=== PATIENT | male | born 1975 | race Caucasian/White ===

== ENCOUNTER 2025-01-07 17:33 | Emergency (ER) | payer OTHER, SELFPAY ==
[2025-01-07 17:49] VITALS: BP 171/102; PULSE 107; TEMP 37.1; O2SAT 99; BMI 37.0
--- OUTSIDE RECORDS SUMMARY | 2025-01-07 18:30 | XMS_ITS | Encounter Summary ---
Author Organization [facility] Address [address], [address] [place] [address] Care Team Providers Care Lithograph Printer Name Role Phone Lisseth Olivares DO Primary Care Provider Reason for Visit * Reason Comments Medication Refill Encounter Details Date Type Department Care Team (Late st Contact Info) Description 05/23/2020 [facility] [address] [place] [address] Lisseth Olivares DO [address] [place] [address] Medication Refill Social History Tobacco Use Types Packs/Day Years Used Date Smoking Tobacco: Every Day Cigarettes 2 23 Started: 11/01/1988; Last attempted to quit: 11/02/2011 Smokeless Tobacco: Never Alcohol Use Standard Drinks/Week Comments No 0 (1 standard drink = 0.6 oz pur e alcohol) PHQ-2 Answer Date Recorded PHQ-2 Score 0 07/29/2018 Sex and Gender Information Value Date Recorded Sex Assigned at Not on file Legal Sex Male 2:46 PM EST Gender Identity Not on file Sexual Orientation Not on file documented as of this encounter Plan of Treatment Upcoming Encounters Date Type Department Care Team (Late st Contact Info) Description 01/13/2025 10:20 AM EDT Office Visit [facility] [address] [place] [phone] Lisseth Olivares DO [address] [facility] [place] [address] Check up - DM documented as of this encounter Visit Diagnoses Not on filedocumented in this encounter Care Teams Lithograph Printer Relationship Specialty Start Date End Date Lisseth Olivares DO [address] [place] [phone] PCP - General Family Medicine 09/08/17 documented as of this encounter
--- OUTSIDE RECORDS SUMMARY | 2025-01-07 18:30 | XMS_ITS | Patient Health Record ---
Author Organization [facility] Address [address] [place] [address] Care Team Providers Care Pin Puller Name Role Phone Lisseth Olivares Primary Care Provider Curry aury Nam Jean Pierre Unavailable [phone] Allergies No Known Allergies Reason For Referral No Information Social History Tobacco Use: Social History Observation Description Date Details (start date - stop date) Current Smoker NA - NA Smoking History Question Answer Notes Smoking Status Current Smoker Problems Problem Type SNOMED Code ICD Code Onset Dates Problem Status W/U Status Risk Notes Problem Ganglion of right wrist (M67.431) Active confirmed Problem Arthralgia of right wrist (M25.531) Active confirmed Plan Of Treatment No Information Insurance Providers Payer Name Payer Address Payer Phone Subscriber Number Group Number Insured Name Patient Relationship to Insured Coverage Start Date Coverage End Date [facility] YANELY [address] [place] [address] [id number] DEDE TOMAS Self - patient is the insured Medical (General) History Medical History History ICD Code Asthma/COPD Yes Heart Attack: Yes Heart problems: Yes Diabetes: Yes GI Problems: Yes High Blood Pressure: Yes Sleep apnea: Yes Surgical History Surgery Date(Month/Year)
--- OUTSIDE RECORDS SUMMARY | 2025-01-07 18:30 | XMS_ITS | Clinical Summary ---
Author Organization [facility] Address [address] [place] [address] Care Team Providers Care Aircraft General Repair Mechanic Name Role Phone Unavailable Primary Care Provider Unavailabl e Social History Tobacco Use Types Packs/Day Years Used Date Smoking Tobacco: Never Assessed Sex and Gender Information Value Date Recorded Sex Assigned at Not on file Legal Sex Male 8:22 PM EDT Gender Identity Not on file Sexual Orientation Not on file Last Filed Vital Signs Vital Sign Reading Time Taken Comments Blood Pressure 136/90 10/09/2017 12:00 PM EDT Pulse - - Temperature - - Respiratory Rate - - Oxygen Saturation - - Inhaled Oxygen Concentration - - Weight 129 kg (285 lb) 10/09/2017 12:00 PM EDT Height 182.9 cm (6') 10/09/2017 12:00 PM EDT Body Mass Index 38.65 10/09/2017 12:00 PM EDT Plan of Treatment Not on file
--- OUTSIDE RECORDS SUMMARY | 2025-01-07 18:30 | XMS_ITS | Clinical Summary ---
Author Organization [facility] Address [address], [address] [place] [address] Care Team Providers Care Compliance Director Name Role Phone Lisseth Olivares Primary Care Provider Allergies Active Allergy Reactions Criticality Noted Date Comments Bee Venom Anaphylaxis High 01/19/2014 Medications Lancets MISCIndications: Other diabetic neurological complication associated with type 2 diabetes mellitus (HCC) Test blood sugar twice daily and as needed 100 each 3 07/19/19 16 Active Additional Information Patient not taking.Reported on 09/14/2024 acetaminophen (TYLENOL) 325 MG tablet Take 325 mg by mouth Active blood glucose monitor strips Test BID 100 strip 5 06/28/19 21 Active Additional Information Patient not taking.Reported on 09/14/2024 Continuous Blood Gluc Coach Operator (FREESTYLE NICCI READER) DEVIIndications: Type 2 diabetes mellitus with diabetic polyneuropathy, with long-term current use of insulin ([facility]) Check sugar 4 times daily 1 each 08/04/19 22 Active Additional Information Patient not taking.Reported on 09/14/2024 Continuous Blood Gluc Sensor (FREESTYLE NICCI 14 DAY SENSOR) MISCIndications: Type 2 diabetes mellitus with diabetic polyneuropathy, with long-term current use of insulin ([facility]) Use to monitor glucose continuously. Change every 2 wks. 6 each 3 08/17/19 Active Additional Information Patient not taking.Reported on 09/14/2024 gabapentin (NEURONTIN) 600 MG tabletIndication s:Type 2 diabetes mellitus with diabetic polyneuropathy, with long-term current use of insulin (HCC) Take 1 tablet by mouth 2 times daily for 180 days. 60 tablet 5 01/29/20 Active Additional Information Patient not taking.Reported on 09/14/2024 insulin aspart (NOVOLOG FLEXPEN) 100 UNIT/ML injection pen Inject 30 Units into the skin 3 times daily (before meals) 9 Adjustable Dose Pre-filled Pen Syringe 5 01/29/20 Active Additional Information Patient not taking.Reported on 09/14/2024 metFORMIN (GLUCOPHAGE-XR) 500 MG extended release tablet Take 2 tablets by mouth 2 times daily (with meals) 120 tablet 5 01/29/20 Active Additional Information Patient not taking.Reported on 09/14/2024 insulin glargine (LANTUS SOLOSTAR) 100 UNIT/ML injection pen Inject 40 Units into the skin daily 45 mL 1 07/22/19 25 Active lisinopril (PRINIVIL;ZESTRI L) 10 MG tablet Take 1 tablet by mouth daily 90 tablet 1 08/28/19 25 Active Insulin Pen Needle (Janalakshmi UNIFINE PENTIPS PLUS) 32G X 4 MM MISCIndications: Type 2 diabetes mellitus with diabetic polyneuropathy, with long-term current use of insulin ([facility]) Use daily to inject lantus 100 each 3 08/28/19 25 Active blood glucose monitor stripsIndication s:Type 2 diabetes mellitus with diabetic polyneuropathy, with long-term current use of insulin ([facility]) Test 3 times a day 300 strip 1 08/28/19 25 Active glucose monitoring kitIndications:T ype 2 diabetes mellitus with diabetic polyneuropathy, with long-term current use of insulin ([facility]) 1 kit by Does not apply route 3 times daily 1 kit 08/28/19 25 Active Additional Information Patient not taking.Reported on 09/14/2024 Lancets MISCIndications: Type 2 diabetes mellitus with diabetic polyneuropathy, with long-term current use of insulin ([facility]) 1 each by Does not apply route 3 times daily 30 each 3 05/02/20 25 Active buPROPion (WELLBUTRIN SR) 150 MG extended release tablet Take 1 tablet by mouth 2 times daily 60 tablet 2 12/21/19 25 Active glipiZIDE (GLUCOTROL XL) 5 MG extended release tablet Take 1 tablet by mouth daily 30 tablet 2 12/21/19 25 Active glipiZIDE (GLUCOTROL XL) 5 MG extended release tablet Take 1 tablet by mouth daily 30 tablet 2 09/15/19 25 025 Discontin ued(REORD ER) buPROPion (WELLBUTRIN SR) 150 MG extended release tablet Take 1 tablet by mouth 2 times daily 60 tablet 2 11/16/19 25 025 Discontin ued(REORD ER) Active Problems Problem Noted Date Diagnosed Date Type 2 diabetes mellitus wit h diabetic polyneuropathy, with long-term current use of insulin 07/25/2024 Thoracic back pain 09/01/2015 Depression with anxiety 05/05/2012 Obesity 11/05/2011 Type 2 diabetes mellitus wit h complication, with long-term current use of insulin Essential hypertension Dyslipidemia Tobacco abuse Resolved Problems Problem Noted Date Diagnosed Date Resolved Date Cutaneous abscess of back excluding buttocks 0 07/27/2021 Asthma 11/05/2011 06/29/2020 Chest pain at rest 9 Encounters Date Type Department Care Team Description 12/20/2024 Refill [facility] [address] [place] [address] Lisseth Olivares, DO Medication Refill 11/15/2024 Refill [facility] [address] [place] [address] Lisseth Olivares, DO Medication Refill from Last 3 Months Immunizations Immunization Administration Dates Next Due COVID-19, PFIZER PURPLE top, DILUTE for use, (age 12 y+), 30mcg/0.3mL 02/14/2021,01/17/2021 Influenza 01/26/2013,03/24/2012 Family History Medical History Relation Name Comments Cancer Father Heart Attack Father Heart Disease Father Relation Name Status Comments Father Maternal Grandfather Maternal Grandmother Mother Alive Paternal Grandfather Paternal Grandmother Social History Tobacco Use Types Packs/Day Years Used Date Smoking Tobacco: Every Day Cigarettes 1 23 Smokeless Tobacco: Never Tobacco Cessation:Ready to Q uit: No; Counseling Given: Yes Alcohol Use Standard Drinks/Week Comments No 0 (1 standard drink = 0.6 oz pur e alcohol) [facility] Utilities Answer Date Recorded In the past 12 months has th e electric, gas, oil, or water company threatened to shut off services in your home? No 07/21/2024 Overall Financial Resource Strain (CARDIA) Answe r Date Recorded How hard is it for you to pa y for the very basics like food, housing, medical care, and heating? Very hard 06/18/2022 PHQ-2 Answer Date Recorded PHQ-9 Total Score 8 07/21/2024 Hunger Vital Sign Answer Date Recorded Within the past 12 months, y ou worried that your food would run out before you got the money to buy more. Never true 07/22/19 25 Within the past 12 months, t he food you bought just didn't last and you didn't have money to get more. Never true 07/21/2024 PRAPARE - Transportation Answer Date Re corded In the past 12 months, has l ack of transportation kept you from medical appointments or from getting medications? No 06/27 In the past 12 months, has l ack of transportation kept you from meetings, work, or from getting things needed for daily living? No 07/21/2024 Housing Stability Vital Sign Answer Dc e Recorded Unable to Pay for Housing in the Last Year Not o n file 06/18/2022 Number of Places Lived in the Last Year Not on f ile 06/18/2022 In the last 12 months, was t here a time when you did not have a steady place to sleep or slept in a mcfp (including now)? Yes 06/18/2022 Housing Stability Vital Sign Answer Dc e Recorded In the last 12 months, was t here a time when you were not able to pay the mortgage or rent on time? No 07/21/2024 In the past 12 months, how m any times have you moved where you were living? 0 07/21/2024 At any time in the past 12 m [facility], were you homeless or living in a mcfp (including now)? No 07/21/2024 Food Insecurity Answer Date Recorded Within the past 12 months, y ou worried that your food would run out before you got the money to buy more. 1 07/21/2024 Within the past 12 months, t he food you bought just didn't last and you didn't have money to get more. 1 07/21/2024 Sex and Gender Information Value Date Recorded Sex Assigned at Not on file Legal Sex Male 2:46 PM EST Gender Identity Not on file Sexual Orientation Not on file Last Filed Vital Signs Vital Sign Reading Time Taken Comments Blood Pressure 120/88 09/14/2024 1:03 PM EDT Pulse 101 09/14/2024 1:03 PM EDT Temperature 36.9 C (98.4 F) 03/01/2022 11:46 PM EDT Respiratory Rate 16 03/01/2022 11:46 PM EDT Oxygen Saturation 98% 09/14/2024 1:03 PM EDT Inhaled Oxygen Concentration - - Weight 104.6 kg (230 lb 8 oz) 09/14/2024 1:03 PM EDT Height 182.9 cm (6' 0.01 ) 09/14/2024 1:03 PM ED T Body Mass Index 31.25 09/14/2024 1:03 PM EDT Plan of Treatment Upcoming Encounters Date Type Department Care Team (Late st Contact Info) Description 01/13/2025 10:20 AM EDT Office Visit [facility] [address] [place] [address] Lisseth Oliavres DO [address] [place] [address] Check up - DM Health Maintenance Due Date Last Done Comments DTaP/Tdap/Td vaccine (1 - Tdap) 1995 Hepatitis B vaccine (1 of 3 - 19+ 3-dose series) 1995 Pneumococcal 0-49 years Vaccine (1 of 2 - PCV) 1995 Diabetic retinal exam 10/15/2017 10/15/2016 , 12/14/2013, 05/25/2012 Colonoscopy 2021 Colorectal Cancer Screen 2021 FIT/FOBT: Average risk 2021 Fecal-DNA (Cologuard): Average risk 2021 Sigmoidoscopy/CT colonography 2021 Diabetic foot exam 07/27/2022 07/27/2021, 0 09/10/2018, 11/01/2014, Additional history exists Flu vaccine (#1) 11/26/2024 01/26/2013, 03/24/2012 A1C test (Diabetic or Prediabetic) 11/27/2024 08/27/2024, 01/28/2023, 06/18/2022, Additional history exists COVID-19 Vaccine ( season) 2024 02/14/2021, 01/17/2021 Depression Monitoring 07/21/2025 07/21/2024, 025 Diabetic Alb to Cr ratio (uACR) test 08/27/2025 08/27/2024, 06/16/2020, 09/10/2018, Additional history exists GFR test (Diabetes, CKD 3-4, OR last GFR 15-59) 08/27/2025 08/27/2024, 01/28/2023, 07/03/2022, Additional history exists Lipids 08/27/2025 08/27/2024, 1006/2022, 08/21/2021, Additional history exists HIV screen Addressed 10/18/2015 (Declined) Overri dden with the intention of not completing the topic Hepatitis C screen Completed 06/16/2020 Hepatitis A vaccine Aged Out No longe r eligible based on patient's age to complete this topic Hib vaccine Aged Out No longer eligi ble based on patient's age to complete this topic Meningococcal (ACWY) vaccine Aged Out No longer eligible based on patient's age to complete this topic Meningococcal B vaccine Aged Out No l onger eligible based on patient's age to complete this topic Polio vaccine Aged Out No longer elig ible based on patient's age to complete this topic Procedures Procedure Name Priority Date/Time Associated Diagnosis Comments COMPREHENSIVE METABOLIC PANEL Routine 08/27/2024 2:56 PM EDT Type 2 diabetes mellitus with diabetic polyneuropathy, with long-term current use of insulin (HCC) Essential hypertension LIPID PANEL Routine 08/27/2024 2:56 PM EDT Type 2 diabetes mellitus with diabetic polyneuropathy, with long-term current use of insulin (HCC) ALBUMIN/CREATININE RATIO, URINE Routine 08/27/2024 2:56 PM EDT Type 2 diabetes mellitus with diabetic polyneuropathy, with long-term current use of insulin (HCC) HEMOGLOBIN A1C Routine 08/27/2024 2:56 PM EDT Type 2 diabetes mellitus with diabetic polyneuropathy, with long-term current use of insulin (HCC) HEPATITIS C ANTIBODY Routine 06/16/2020 8:35 AM EST Need for hepatitis C screening test DIABETES EYE EXAM Routine 10/15/2016 from Last 3 Months or Most Recently Relevant to Health Maintenance Results * (ABNORMAL) Albumin/Creatinine Ratio, Urine (08/27/2024 2:56 PM EDT) Albumin Urine 119(H) 0 - 20 mg/L 08/27/2024 2:56 PM EDT [facility] Creatinine, Ur 172.0 39.0 - 259.0 mg/dL 08/27/2024 2:56 PM EDT [facility] Comment:Reference range defi eileen for 1st morning urine Microalb/Machinery Cleaner. Ratio 69(H) 0.0 - 17.0 mcg/mg creat 08/27/2024 2:56 PM EDT [facility] Urine (Urine) 08/27/2024 2:5 6 PM EDT 08/27/2024 2:57 PM EDT us Lisseth Olivares DO URINE ORDERABLES Final Resul t [facility] [address] [place] [address], [facility] [phone] [address] [place] [address], [facility] [phone] * (ABNORMAL) Hemoglobin A1C (08/27/2024 2:56 PM EDT) Hemoglobin A1C 10.4(H) 4.0 - 6.0 % 08/27/2024 2:56 PM EDT [facility] Estimated Avg Glucose 252 mg/dL 08/27/2024 2:56 PM EDT [facility] Comment: The ADA and AACC recommend providing the estimated average glucose result to permit better patient understanding of their HBA1c result. Blood BLOOD SPECIMEN / Unknown 08/27/2024 2:56 PM EDT 08/27/2024 2:57 PM EDT Lisseth Olivares DO CHEMISTRY ORDERABLES Final R esult [facility] [address] [place] [address], [facility] [phone] [facility] [address] [place] [address], [facility] [phone] * (ABNORMAL) Lipid Panel (08/27/2024 2:56 PM EDT) [facility] Cholesterol, Total 244(H) 0 - 199 mg/dL 08/27/2024 2:56 PM EDT [facility] Comment: Cholesterol Guidelines: <200 Desirable 200-240 Borderline >240 Undesirable HDL 45 >40 mg/dL 08/27/2024 2:56 PM EDT [facility] Comment: HDL Guidelines: <40 Undesirable 40-59 Borderline >59 Desirable LDL Cholesterol 164(H) 0 - 100 mg/dL 08/27/2024 2:56 PM EDT [facility] Comment: LDL Guidelines: <100 Desirable 100-129 Near to/above Desirable 130-159 Borderline >159 Undesirable Direct (measured) LDL and calculated LDL are not interchangeable tests. Chol/HDL Ratio 5.4(H) <5.0 08/27/2024 2:56 PM EDT [facility] Triglycerides 174(H) <150 mg/dL 08/27/2024 2:56 PM EDT [facility] Comment: Triglyceride Guidelines: <150 Desirable 150-199 Borderline 200-499 High >499 Very high Based on AHA Guidelines for fasting triglyceride, January 2012. VLDL 35(H) 1 - 30 mg/dL 08/27/2024 2:56 PM EDT [facility] Blood BLOOD SPECIMEN / Unknown 08/27/2024 2:56 PM EDT 08/27/2024 2:57 PM EDT Lisseth Olivares DO CHEMISTRY ORDERABLES Final R esult [facility] [address] [place] [address], [facility] [phone] [facility] [place] [address], [facility] [phone] * (ABNORMAL) Comprehensive Metabolic Panel (08/27/2024 2:56 PM EDT) Sodium 139 135 - 144 mmol/L 08/27/2024 2:56 PM EDT [facility] Potassium 3.9 3.7 - 5.3 mmol/L 08/27/2024 2:56 PM EDT [facility] Chloride 102 98 - 107 mmol/L 08/27/2024 2:56 PM EDT [facility] CO2 24 20 - 31 mmol/L 08/27/2024 2:56 PM EDT [facility] Anion Gap 13 9 - 17 mmol/L 08/27/2024 2:56 PM EDT [facility] Glucose 300(H) 70 - 99 mg/dL 08/27/2024 2:56 PM EDT [facility] BUN 18 6 - 20 mg/dL 08/27/2024 2:56 PM EDT [facility] Creatinine 0.9 0.7 - 1.2 mg/dL 08/27/2024 2:56 PM EDT [facility] Est, Glom Filt Rate >90 >60 mL/min/1.7 3m2 08/27/2024 2:56 PM EDT [facility] Comment: These results are not intended for use in patients <18 years of age. eGFR results are calculated without a race factor using the 2020 CKD-EPI equation. Careful clinical correlation is recommended, particularly when comparing to results calculated using previous equations. The CKD-EPI equation is less accurate in patients with extremes of muscle mass, extra-renal metabolism of creatine, excessive creatine ingestion, or following therapy that affects renal tubular secretion. Calcium 8.9 8.6 - 10.4 mg/dL 08/27/2024 2:56 PM EDT [facility] Total Protein 6.8 6.4 - 8.3 g/dL 08/27/2024 2:56 PM EDT [facility] Albumin 4.0 3.5 - 5.2 g/dL 08/27/2024 2:56 PM EDT [facility] Albumin/Globulin Ratio 1.4 1.0 - 2.5 08/27/2024 2:56 PM EDT [facility] Total Bilirubin 0.7 0.3 - 1.2 mg/dL 08/27/2024 2:56 PM EDT [facility] Alkaline Phosphatase 79 40 - 129 U/L 08/27/2024 2:56 PM EDT [facility] ALT 18 5 - 41 U/L 08/27/2024 2:56 PM EDT [facility] AST 23 <40 U/L 08/27/2024 2:56 PM EDT [facility] Blood BLOOD SPECIMEN / Unknown 08/27/2024 2:56 PM EDT 08/27/2024 2:57 PM EDT us Lisseth Olivares DO CHEMISTRY ORDERABLES Final R esult [facility] [address] [place] [address], [facility] [phone] * Hepatitis C Antibody (06/16/2020 8:35 AM EST) Pathologist [facility] [place] Hepatitis C Ab NONREACTIVE NONREACTIVE 06/16/19 21 8:35 AM EST [facility] Comment: The hepatitis C procedure used in our laboratory is a Chemiluminescent test specific for three recombinant HCV antigens. A negative anti-HCV result indicates that the antibodies to hepatitis C virus are not present at this time. Individuals with reactive anti-HCV should be considered infected and infectious until proven otherwise. Confirmation of all equivocal or reactive results is recommended by ordering HCV RNA by PCR. BLOOD SPECIMEN / Unknown 06/16/2020 8:35 AM EST 06/16/2020 8:39 AM EST Lisseth Olivares DO IMMUNOLOGY ORDERABLES Final Result [facility] [address] [place] [address], [facility] [phone] [facility] [address] [place] [address], [facility] [phone] * DIABETES EYE EXAM (10/15/2016) Historical Provider HEALTH MAINTENANCE Final Result from Last 3 Months or Most Recently Relevant to Health Maintenance [facility] Advance Directives * Full Code (Latest Code Status on File) Date Activated Date Inactivated Comments 01/08/2019 9:31 PM 01/09/2019 4:57 PM Healthcare Agents on File Name Relationship Healthcare Agent Relationship Communication Basim Louis Spouse Primary Decision Maker Care Teams Compliance Director Relationship Specialty Start Date End Date Lisseth Olivares DO [address] [place] [address] PCP - General Family Medicine 09/08/17
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
--- NOTE | 2025-01-07 19:19 | CT_ITS ---
The [address] [address] Patient Name: DEDE TOMAS MRN: [id number] date: 1975 Sex: M Assigned Patient Location: ER Current Patient Location: Accession/Order Number: [id number] Exam Date: 01/07/2025 19:24 Report Date: 01/07/2025 19:55 At the request of: EDVIN DSOUZA MD Procedure: CT cervical spine wo con CT CERVICAL SPINE WITHOUT CONTRAST WITH 3D RECONSTRUCTIONS: CLINICAL HISTORY: fall COMPARISON: None TECHNIQUE: Spiral axial unenhanced images were obtained through the cervical spine. Sagittal, coronal and 3D volume-rendered reconstructions were also reviewed. This CT exam was performed using one or more following dose reduction techniques: Automated exposure control, adjustment of the mA and/or kV according to patient size, or use of iterative reconstruction technique. FINDINGS: No fracture malalignment. Degenerative changes notably from C5 through C7 with diffuse endplate osteophytosis and uncovertebral spurring greatest C5-C6 less so C6 C7. Minimal multilevel facet arthropathy. No prevertebral soft tissue swelling. CT/CT cervical spine wo con IMPRESSION: NO CERVICAL SPINE FRACTURE Impression dictated by: Brannon Saeed M.D. 01/07/2025 7:55 PM Dictation Location: [place] [address] Electronically authenticated by: [id number] Y Date: 01/07/2025 19:55
--- NOTE | 2025-01-07 19:19 | CT_ITS ---
The [address] [address] Patient Name: DEDE TOMAS MRN: [id number] date: 1975 Sex: M Assigned Patient Location: ER Current Patient Location: ER Accession/Order Number: [id number] Exam Date: 01/07/2025 19:24 Report Date: 01/07/2025 20:25 At the request of: EDVIN DSOUZA MD Procedure: CT lumbar spine wo con CT LUMBAR SPINE WITHOUT CONTRAST WITH 3D RECONSTRUCTIONS: CLINICAL HISTORY: fall COMPARISON: None TECHNIQUE: Spiral axial unenhanced images were obtained through the lumbar spine. Sagittal, coronal and 3D volume-rendered reconstructions were also reviewed. This CT exam was performed using one or more following dose reduction techniques: Automated exposure control, adjustment of the mA and/or kV according to patient size, or use of iterative reconstruction technique. FINDINGS: No fracture malalignment. Multilevel degenerative changes. Broad-based disc bulge L4-5 with facet arthropathy. Mild to moderate foraminal narrowing. L5-S1: Circumferential disc bulge with facet arthropathy. Moderate right moderate severe left neural from encroachment. Bilateral nephrolithiasis. CT/CT lumbar spine wo con IMPRESSION: Multilevel degenerative changes without evidence of acute fracture or malalignment. Impression dictated by: Brannon Saeed M.D. 01/07/2025 8:25 PM Dictation Location: [place] [address] Electronically authenticated by: [id number] Y Date: 01/07/2025 20:25
--- NOTE | 2025-01-07 19:19 | CT_ITS ---
The [address] [address] Patient Name: DEDE TOMAS MRN: [id number] date: 1975 Sex: M Assigned Patient Location: ER Current Patient Location: ER Accession/Order Number: [id number] Exam Date: 01/07/2025 19:24 Report Date: 01/07/2025 20:03 At the request of: EDVIN DSOUZA MD Procedure: CT thoracic spine wo con CT THORACIC SPINE WITHOUT CONTRAST WITH 3D RECONSTRUCTIONS: CLINICAL HISTORY: fall COMPARISON: None TECHNIQUE: Spiral axial unenhanced images were obtained through the thoracic spine. Sagittal, coronal and 3D volume-rendered reconstructions were also reviewed. This CT exam was performed using one or more following dose reduction techniques: Automated exposure control, adjustment of the mA and/or kV according to patient size, or use of iterative reconstruction technique. FINDINGS: No fracture malalignment. Mild multilevel degenerative changes. Disc osteophyte complex greatest T11-T12 Lesser disc osteophyte complex formation T8-T9. Mild multilevel facet arthropathy. Minimal multilevel uncovertebral spurring. Bilateral nephrolithiasis. CT/CT thoracic spine wo con IMPRESSION: Multilevel degenerative changes without evidence of acute fracture or malalignment. Impression dictated by: Brannon Saeed M.D. 01/07/2025 8:03 PM Dictation Location: [place] [address] Electronically authenticated by: [id number] Y Date: 01/07/2025 20:03
== END 2025-01-07 20:47 | disposition home or self-care (01) ==
PROVIDERS: Emergency Provider Internal Medicine; PCP Student in an Organized Health Care Education/Training Program
DX: S29.012A Strain of muscle and tendon of back wall of thorax, initial encounter (principal); S39.012A Strain of muscle, fascia and tendon of lower back, initial encounter; W01.0XXA Fall on same level from slipping, tripping and stumbling without subsequent striking against object, initial encounter
CPT/HCPCS: 72125; 72128; 72131; 76376; 99284